=== PATIENT | male | born 1985 | race Caucasian/White ===

== ENCOUNTER 2017-02-21 11:21 | Emergency (ER) | payer OTHER ==
[~2017-02-21] VITALS: Ht 187.9 cm; Wt 121.6 kg
[~2017-02-21 11:21] MED LIST: CATAFLAM50 MG PO; FLEXERIL5 MG PO; IBU-8800 MG PO; IBU800 M1 PO; KEFLEX500 MG PO; LISINOPRIL5 MG PO; MEDROL DOSEPAK4 MG PO; MOTRIN800 MG PO; Motrin,Rufen800 MG PO; NKHM; PERCOCET 325 MG1 TA2 PO; VICODIN 500 MG-1 TAB PO; ZOFRAN4 MG PO
[2017-02-21 11:34] VITALS: BP 128/70
== END 2017-02-21 13:26 | disposition home or self-care (01) ==
LOC: ED 11:21
DX: S90.31XA Contusion of right foot, initial encounter (principal); F17.200 Nicotine dependence, unspecified, uncomplicated; Z79.899 Other long term (current) drug therapy; W20.8XXA Other cause of strike by thrown, projected or falling object, initial encounter; Y93.89 Activity, other specified; Y92.69 Other specified industrial and construction area as the place of occurrence of the external cause; Y99.9 Unspecified external cause status

== ENCOUNTER → 2017-03-17 | Outpatient (CLI) | payer OTHER | LOC: CANPRECLI → ORTHO | DX: M94.261 Chondromalacia, right knee (principal) ==

== ENCOUNTER → 2017-04-26 | Outpatient (CLI) | payer OTHER | END | disposition home or self-care (01) | LOC: ORTHO 01:20 | DX: M25.562 Pain in left knee (principal) ==

== ENCOUNTER 2018-12-26 09:30 | Emergency (ER) | payer OTHER ==
[~2018-12-26] VITALS: Ht 187.9 cm; Wt 122.5 kg
[~2018-12-26 09:30] MED LIST changes: +NAPROSYN500 MG PO; +OMEPRAZOLE40 MG PO; +Percocet 325 MG1 TAB PO; +ROBAXIN500 M1 PO
[2018-12-26 09:32] VITALS: BP 136/94
== END 2018-12-26 11:17 | disposition home or self-care (01) ==
LOC: ED 09:30
DX: S83.92XA Sprain of unspecified site of left knee, initial encounter (principal); Z79.899 Other long term (current) drug therapy; W18.39XA Other fall on same level, initial encounter; X50.1XXA Overexertion from prolonged static or awkward postures, initial encounter; Y93.89 Activity, other specified; Y92.69 Other specified industrial and construction area as the place of occurrence of the external cause; Y99.8 Other external cause status

== ENCOUNTER → 2019-01-08 | Outpatient (CLI) | payer OTHER | END | disposition home or self-care (01) | LOC: ORTHO 01:09 | DX: M17.12 Unilateral primary osteoarthritis, left knee (principal) ==

== ENCOUNTER → 2020-05-07 | Outpatient (CLI) | payer OTHER | END | disposition home or self-care (01) | LOC: ORTHO 00:21 | PROVIDERS: ATTEND Orthopaedic Surgery | DX: M25.562 Pain in left knee (principal) ==

== ENCOUNTER → 2021-11-02 | Outpatient (CLI) | payer OTHER | END | disposition home or self-care (01) | LOC: RAD 10:05 | PROVIDERS: ATTEND Family Medicine | DX: M47.814 Spondylosis without myelopathy or radiculopathy, thoracic region (principal); M47.817 Spondylosis without myelopathy or radiculopathy, lumbosacral region; M48.07 Spinal stenosis, lumbosacral region; M16.12 Unilateral primary osteoarthritis, left hip ==

== ENCOUNTER 2024-02-05 11:54 | Emergency (ER) | payer OTHER ==
[~2024-02-05] VITALS: Ht 187.9 cm; Wt 127.0 kg
[2024-02-05] MEDS ORDERED: AMLODIPINE BESY10 MG PO (12:48)
[2024-02-05 12:49] VITALS: BP 137/117
[2024-02-05] MEDS ORDERED: PREDNISONE50 MG PO (14:43)
== END 2024-02-05 15:09 | disposition home or self-care (01) ==
LOC: ED 11:54
DX: S46.912A Strain of unspecified muscle, fascia and tendon at shoulder and upper arm level, left arm, initial encounter (principal); I10 Essential (primary) hypertension; Z98.890 Other specified postprocedural states; X58.XXXA Exposure to other specified factors, initial encounter; Y93.89 Activity, other specified; Y92.89 Other specified places as the place of occurrence of the external cause; Y99.0 Civilian activity done for income or pay

== ENCOUNTER → 2024-07-29 | Outpatient (CLI) | payer OTHER ==
[~2024-07-29] MED LIST changes: +AMLODIPINE BESY10 MG PO; +PREDNISONE50 MG PO
[2024-07-29 10:08] LABS: BILIRUBIN Negative (Negative); BLOOD Negative (Negative); CLARITY Clear (Clear); COLOR Yellow (Yellow); GLUCOSE Negative (Negative); KETONE Trace (Negative); LEUKO ESTERASE Negative (Negative); NITRITE Negative (Negative); SPECIFIC GRAVITY 1.025 (1.001-1.030)
[2024-07-29 10:11] LABS: BASO # 0.1 10*3/uL (0.0-0.1); BASO % 0.5 % (0.0-1.0); EOS # 0.3 10*3/uL (0.0-0.4); MEAN CELL VOLUME 86.7 fl (80.0-94.0); MEAN CORPUSCULAR HGB 29.9 pg (27.0-31.0); MEAN CORPUSCULAR HGB CONC 34.5 g/dl (33.0-37.0); MEAN PLATELET VOLUME 9.8 fl (9.6-12.3); MONO # 0.8 10*3/uL (0.1-1.0); MONO % 7.6 % (3.0-9.0); NEUT % 50.1 % (47.0-73.0); PLATELET COUNT AUTOMATED 227 10*3/uL (130-400); RED BLOOD COUNT 5.88 10*6/uL (4.50-5.90); RED CELL DISTRI WIDTH 12.3 % (0-14.5); RETICULOCYTE % 2.43 % (0.50-2.50)
[2024-07-29 10:38] LABS: ALKALINE PHOSPHATASE 109 U/L (46-116); BUN 9 mg/dl (9-23); CHLORIDE 104 mmol/L (98-107); CHOLESTEROL 189 mg/dL (<200); GAMMA GLUTAMYL TRANSPEPTIDASE 52 U/L (0-73); LDL CHOLESTEROL 101 mg/dL (9-159); POTASSIUM 4.1 mmol/L (3.4-5.1); SGPT/ALT 56 U/L (5-49); T3 UPTAKE 28.5 % (22.4-36.7); THYROXINE (T4) TOTAL 9.5 ug/dl (4.5-10.9); TOTAL PROTEIN 7.2 gm/dL (6.0-8.0); TRIGLYCERIDES 259 mg/dl (<150); URIC ACID 6.3 mg/dL (3.7-9.2)
[2024-07-29 11:09] LABS: VITAMIN D, 25-HYDROXY 25.7 ng/mL (30-100)
[2024-07-29 11:14] LABS: BACTERIA TRACE; WBC 0-2 wbc/hpf (0-5)
[2024-07-30 11:05] LABS: ANTI-DSDNA ANTIBODIES <1 IU/mL (0-9)
[2024-07-31 07:04] LABS: INSULIN-LIKE GROWTH FACTOR-1 148 ng/mL (84-270)
== END | disposition home or self-care (01) ==
LOC: LAB 09:31
PROVIDERS: ATTEND Family Medicine
DX: R79.89 Other specified abnormal findings of blood chemistry (principal); R53.83 Other fatigue; E55.9 Vitamin D deficiency, unspecified

== ENCOUNTER 2024-11-24 13:41 | Emergency (ER) | payer OTHER ==
[~2024-11-24] VITALS: Ht 187.9 cm; Wt 131.5 kg
[2024-11-24 13:50] VITALS: BP 155/103
[2024-11-24] MEDS ORDERED: CIPROFLOX-DEXA7.5 ML OT (14:03)
== END 2024-11-24 14:06 | disposition home or self-care (01) ==
LOC: ED 13:41
DX: H60.91 Unspecified otitis externa, right ear (principal); Z79.899 Other long term (current) drug therapy